=== PATIENT | female | born 1990 | race African-American/Black ===

== ENCOUNTER 2016-12-14 20:20 | Emergency (ER) | payer SELFPAY ==
[2016-12-14 20:22] VITALS: BP 157/89; PULSE 92; RESP 16; TEMP 99.3; O2SAT 98
[2016-12-14] MEDS ORDERED: CYCL1TAB29 PO (20:50)
[2016-12-14] MEDS ORDERED: AMOX500T PO (20:50)
[2016-12-14] MEDS ORDERED: DICL75TA PO (20:50)
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
[2016-12-14] MEDS ORDERED: CYCLOBENZAPRINE HCL 10 MG TAB PO ONE (21:00)
[2016-12-14] MEDS ORDERED: AMOXICILLIN (TRIHYDRATE) 500 MG CAP PO ONE (21:00)
== END 2016-12-14 21:16 | disposition home or self-care (01) ==
LOC: NEPK 20:20
DX: K04.7 Periapical abscess without sinus (principal); S16.1XXA Strain of muscle, fascia and tendon at neck level, initial encounter; Z72.0 Tobacco use; X58.XXXA Exposure to other specified factors, initial encounter
CPT/HCPCS: 99284